=== PATIENT | female | born 1965 | race Caucasian/White ===

== ENCOUNTER 2017-02-09 20:52 | Emergency (ER) | payer OTHER ==
[~2017-02-09] VITALS: Ht 167.6 cm; Wt 91.3 kg
[~2017-02-09 20:52] MED LIST: AMPH1CAP4 PO; AMPH30CA PO; CLAR10CA3 PO; PREV30CA11 PO
[2017-02-09 21:08] VITALS: BP 110/77; PULSE 87; RESP 16; TEMP 98.5; O2SAT 98
--- NOTE | 2017-02-09 21:55 | PD ---
HPI Chief Complaint: Injury Time Seen by Provider: 21:45 Travel History International Travel<30 days: No Contact w/Intl Traveler<30days: No Traveled to known affect area: No History of Present Illness HPI 51-year-old female presents to the emergency room for evaluation of right ankle pain after injuring it earlier today. Patient states she was walking in her room when she accidentally inverted her right ankle. She fell to the ground and hit her elbow. She denies immediate pain in her ankle. States she was able to walk the rest of the day while at school but after going home and resting, the pain began and worsened. Pain is localized to the lateral malleolus with radiation into the proximal foot. She denies pain at rest but reports mild pain with plantar or dorsiflexion. She took ibuprofen with moderate relief in symptoms. Denies paresthesias. Chronic medical conditions or daily medications. PFSH Past Medical History Anemia: Yes Diminished Hearing: No Immunizations Current: No Tetanus Vaccination: < 5 Years Influenza Vaccination: No ?: Not Menopausal: Yes : 4 Para: 3 Miscarriage: 1 Tubal Ligation: Yes Past Surgical History Section: Yes Gynecologic Surgery: Yes Social History Alcohol Use: Yes (Occ.) Tobacco Use: No Substance Use: No Allergies-Medications (Allergen,Severity, Reaction): Coded Allergies: No Known Allergies (Verified , 02/09/17) Reported Meds & Prescriptions Reported Meds & Active Scripts Active Amphetamine-Dextroamphetamine ER 24 HR 30 Mg Cap 30 Mg PO DAILY Once daily in the morning. May fill 01/01/17 Review of Systems Except as stated in HPI: all other systems reviewed are Neg Physical Exam Narrative GENERAL: Well-nourished, well-developed female in no acute distress. Afebrile. SKIN: Focused skin assessment warm/dry. No erythema or ecchymosis. HEAD: Normocephalic. EYES: No scleral icterus. No injection or drainage. NECK: Supple, trachea midline. No JVD or lymphadenopathy. CARDIOVASCULAR: Regular rate and rhythm without murmurs, gallops, or rubs. RESPIRATORY: Breath sounds equal bilaterally. No accessory muscle use. MUSCULOSKELETAL: No cyanosis. No significant edema. 2+ dorsalis pedis pulse. Full range of motion. Mild tenderness to palpation of lateral malleolus. Data Data Last Documented VS Vital Signs Date Time Temp Pulse Resp B/P (MAP) Pulse Ox O2 Delivery O2 Flow Rate FiO2 02/09/17 22:05 02/09/17 21:08 98.5 87 16 98 Orders Orders Splint Or Brace Apply/Monitor (02/09/17 21:50) Crutches (02/09/17 21:50) Brace Ankle Stirrup (02/09/17 ) MDM Medical Decision Making Medical Screen Exam Complete: Yes Emergency Medical Condition: Yes Medical Record Reviewed: Yes Differential Diagnosis Sprain, strain, fracture, dislocation Narrative Course 51-year-old female presents to the emergency room for evaluation of right ankle pain after injuring it at work earlier today. Patient tripped and inverted her right ankle. She did not have immediate pain and was able to ambulate without difficulty. Patient states pain started later on and now she has pain with plantarflexion and dorsiflexion but no pain at rest. Physical exam is reassuring. No erythema, edema, ecchymosis, bony tenderness to palpation, or loss or range of motion. 2+ dorsalis pedis pulse. [place] ankle rules exclude need for imaging at this time. Patient prefers to forego imaging stating she knows it is not broken. She was placed in ankle stirrup and discharged with crutches. Told to follow-up with her primary care physician or return for worsening symptoms. She understands and agrees to plan. Diagnosis Primary Impression: Right ankle sprain Qualified Codes: S93.401A - Sprain of unspecified ligament of right ankle, initial encounter Referrals: Primary Care Physician Departure Forms: School Release, Please excuse from school until (free text option): Please allow Ms. Montemayor to sit as needed throughout the day. Tests/Procedures Additional Instructions: Rest and drink plenty of fluids. Ankle stirrup and crutches for 1 week. Then as needed for pain. Take ibuprofen with food as directed, as needed for pain. Elevated and apply ice to the affected area for 20 minutes at a time, as needed for pain and swelling. Follow-up with a primary care physician. Return to the emergency room for worsening symptoms. Med/Other Pt SpecificInfo: Prescription(s) given Disposition: 01 DISCHARGE HOME Condition: Stable Leonor Ferrer Feb 09, 2017 21:55
== END 2017-02-09 22:15 | disposition home or self-care (01) ==
LOC: PHEFT 20:52
DX: S93.401A Sprain of unspecified ligament of right ankle, initial encounter (principal); W01.0XXA Fall on same level from slipping, tripping and stumbling without subsequent striking against object, initial encounter
CPT/HCPCS: 99282; E0113; L1906